=== PATIENT | male | born 1950 | race Caucasian/White ===

== ENCOUNTER 2024-08-16 12:34 | Outpatient (CLI) | payer OTHER, SELFPAY | END 2024-08-16 12:35 | disposition home or self-care (01) | LOC: FBOREF 12:37 | PROVIDERS: PCP Family Medicine; Visit Provider Family Medicine | DX: I10 Essential (primary) hypertension (principal); K74.60 Unspecified cirrhosis of liver | CPT/HCPCS: 80053; 85025 ==

== ENCOUNTER 2024-12-28 12:45 | Outpatient (CLI) | payer OTHER, SELFPAY | END 2024-12-28 12:46 | disposition home or self-care (01) | LOC: RAD 12:49 | PROVIDERS: PCP Family Medicine; Visit Provider Family Medicine | DX: I35.0 Nonrheumatic aortic (valve) stenosis (principal); I35.8 Other nonrheumatic aortic valve disorders; I35.1 Nonrheumatic aortic (valve) insufficiency | CPT/HCPCS: 93306 ==

== ENCOUNTER 2025-05-01 13:55 | Outpatient (CLI) | payer OTHER, SELFPAY | END 2025-05-01 13:56 | disposition home or self-care (01) | PROVIDERS: PCP Family Medicine; Visit Provider Family Medicine | DX: E11.9 Type 2 diabetes mellitus without complications (principal); I10 Essential (primary) hypertension; Z12.5 Encounter for screening for malignant neoplasm of prostate | CPT/HCPCS: 80048; 80061; 80076; 82043; 82570; G0103 ==